=== PATIENT | male | born 1970 | race Caucasian/White ===

== ENCOUNTER → 2016-12-07 | Outpatient (CLI) | payer BC ==
--- NOTE | 2016-12-07 15:48 | CT ---
EXAMINATION TYPE: CT sinus wo con DATE OF EXAM: 12/07/2016 3:34 PM COMPARISON: NONE HISTORY: Sinus and facial pain, pressure and congestion x 25 years +. Chronic sinusitis per order. CT DLP: 630.30 mGycm. Automated Exposure Control for Dose Reduction was Utilized. TECHNIQUE: CT scan of the sinuses is performed without contrast, axial images are obtained, coronal r eformatted images are also reviewed. FINDINGS: There is mild mucosal thickening involving maxillary sinuses bilaterally. There is mild muc osal thickening involving anterior ethmoid sinuses bilaterally. Remainder paranasal sinuses are clear . The ostiomeatal complex is patent bilaterally on the coronal images. There is asymmetric smaller c aliber on the right of the ostiomeatal complex presumed congenital as there is no suspicious soft tis jaspal thickening seen at level of antrum. Nasal septum is slightly deviated to right of midline. Visualized portion of mastoid air cells show no abnormal opacification. The globes are intact bilate rally. IMPRESSION: Some mild chronic paranasal sinus disease as detailed above. No acute sinus disease at th is time.
== END | disposition home or self-care (01) ==
LOC: RADCTMAIN 15:21
PROVIDERS: ATTEND Otolaryngology
DX: J34.89 Other specified disorders of nose and nasal sinuses (principal)
CPT/HCPCS: 70486

== ENCOUNTER → 2017-12-15 | Outpatient (CLI) | payer BC ==
--- NOTE | 2017-12-15 08:54 | US ---
EXAMINATION TYPE: US abdomen complete DATE OF EXAM: 12/15/2017 COMPARISON: NONE CLINICAL HISTORY: 47-year-old male R10.11 Right upper quadrant pain. Technique: Multiple sonographic images of the abdomen are obtained. FINDINGS: Liver Length: 14.2 cm Gallbladder Wall: 0.2 cm CBD: 0.3 cm Spleen: 11.8 cm Right Kidney: 11.9 x 5.0 x 5.8 cm Left Kidney: 12.0 x 5.0 x 5.3 cm Pancreas: Pancreatic body shows no gross abnormal body. The head and tail are not well visualized du e to bowel gas Liver: Slightly echogenic. No focal lesion. Gallbladder: No abnormal distention, wall thickening, pericholecystic fluid, or shadowing calculi. Evidence for sonographic Lacy's sign: Yes CBD: wnl Spleen: wnl Right Kidney: No hydronephrosis. Left Kidney: No hydronephrosis. Upper IVC: Suboptimally visualized. Abd Aorta: wnl IMPRESSION: 1. Echogenic and slightly heterogeneous liver suggests underlying hepatic steatosis or other nonspeci fic hepatocellular disease. Correlate with LFTs, lipid profile, and patient risk factors. 2. No evidence for cholelithiasis or acute cholecystitis. However, sonographic Lacy sign is reporte d positive. This could reflect referred pain. If further imaging evaluation of the gallbladder is jose ired, HIDA scan can be performed.
== END | disposition home or self-care (01) ==
LOC: RADUSWWP 07:24
PROVIDERS: ATTEND Family Medicine
DX: R10.11 Right upper quadrant pain (principal)
CPT/HCPCS: 76700